=== PATIENT | female | born 1940 ===

== ENCOUNTER 2017-04-20 19:45 | Emergency (ER) | payer OTHER ==
[2017-04-20 19:45] VITALS: BMI 29.2
[2017-04-20 19:52] VITALS: BP 163/77; PULSE 63; RESP 16; TEMP 98.1; O2SAT 98
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
== END 2017-04-21 01:31 | disposition home or self-care (01) ==
LOC: H.ER 19:45
DX: M54.9 Dorsalgia, unspecified (principal); V43.62XA Car passenger injured in collision with other type car in traffic accident, initial encounter; Y92.410 Unspecified street and highway as the place of occurrence of the external cause; E11.9 Type 2 diabetes mellitus without complications

== ENCOUNTER 2017-04-24 08:22 | Day surgery (SDC) | payer OTHER ==
[2017-04-24] MEDS ORDERED: Lactated Ringer's 500 ML IV ONE (08:48)
[2017-04-24 08:50] VITALS: BMI 30.8
[2017-04-24] MEDS ORDERED: Propofol 10 mg/ml Inj (20 ML) ONE (10:19)
[2017-04-24 11:10] VITALS: BP 114/50; PULSE 56; RESP 15; TEMP 96.9; O2SAT 100
== END 2017-04-24 13:29 | disposition home or self-care (01) ==
LOC: H.ENDO 08:22
PROVIDERS: ATTEND Internal Medicine Gastroenterology
DX: Z12.11 Encounter for screening for malignant neoplasm of colon (principal); I25.10 Atherosclerotic heart disease of native coronary artery without angina pectoris; E11.9 Type 2 diabetes mellitus without complications; I10 Essential (primary) hypertension; K64.1 Second degree hemorrhoids
CPT/HCPCS: 45378; J2001; J2704; J7120